=== PATIENT | female | born 1970 | race Caucasian/White ===

== ENCOUNTER 2016-10-14 18:55 | Observation (INO) ==
[2016-10-14] MEDS ORDERED: 0.9 % Sodium Chloride 500 ML IVC ONE (19:42)
[2016-10-14 19:51] LABS: Basophils % 0.3 %; Eosinophils # 0.2 K/mcL (0.0-0.6); Hematocrit 38.4 % (35.3-44.9); Hemoglobin 12.8 g/dL (11.5-15.4); Immature Granulocytes % 0.3 % (0-4); Lymphocytes # 3.2 K/mcL (0.6-4.6); Lymphocytes % 21.8 %; Mean Corpuscular HGB Conc 33.3 g/dL (31.6-35.5); Mean Corpuscular Hemoglobin 31.5 pg (28.0-33.3); Mean Corpuscular Volume 94.6 fL (83.0-100.0); Mean Platelet Volume 10.3 fL (9.4-12.4); Monocytes # 1.1 K/mcL (0.0-1.3); Monocytes % 7.2 %; Neutrophils # 10.2 K/mcL (1.6-8.9); Platelet Count 268 K/mcL (140-400); Red Blood Count 4.06 M/mcL (3.82-4.97); Red Cell Distribution Width 12.9 % (11.5-14.5); Segmented Neutrophils % 69.4 %
[2016-10-14 19:58] LABS: BUN/Creatinine Ratio 13 (6-26); Blood Urea Nitrogen 12 mg/dL (7-20); Calcium 9.5 mg/dL (8.6-10.8); Carbon Dioxide 23 mEq/L (19-29); Chloride 105 mEq/L (98-109); Glucose 90 mg/dL (70-99); Osmolality,Calculated 281 (280-300); Potassium 3.8 mEq/L (3.5-4.5); Sodium 136 mEq/L (136-145); eGFR For African Americans > 60 (> 60); eGFR For Non-African Americans > 60 (> 60)
[2016-10-14 19:59] LABS: Bilirubin,Urine Small (Negative); Blood,Urine Negative (Negative); Color,Urine Dark Yellow (Yellow); Glucose,Urine (UA) Normal (Normal); Ketones,Urine Trace mg/dL (Negative); Leukocyte Esterase,Urine Negative (Negative); Nitrite,Urine Negative (Negative); PH,Urine 5.5 pH Units (5.0-8.0); Protein,Urine 30 mg/dL (Neg-Trace); Urobilinogen,Urine Normal (Normal)
[2016-10-14 20:00] LABS: Bacteria,Urine Moderate per hpf (None-Few); Hyaline Casts,Urine Moderate per lpf (None-Few); Squamous Epithelial Cell,Urine Many per lpf (None-Few)
[2016-10-14 20:02] LABS: Clarity,Urine Slightly Hazy (Clear)
[2016-10-14 20:20] LABS: Mucus,Urine Many (Few); RBC,Urine 0-3 per hpf (0-3)
--- NOTE | 2016-10-14 21:17 | Emergency Department Note ---
Disposition Clinical Impression: Chest pain Qualifiers: Chest pain type: unspecified Qualified Code(s): R07.9 - Chest pain, unspecified Disposition: Admitted As Inpatient Condition: Good Referrals: NONE,PCP [Primary Care Provider] - Forms: ED Satisfaction Letter Time of Disposition: 23:35 Chest Pain HPI - General Chief Complaint: ED Chest Pain Stated Complaint: chest tightness, UTI Time Seen by Provider: 10/14/16 19:19 Source: patient Mode of arrival: ambulatory Limitations: no limitations Vital Signs Reviewed: Yes Nursing Notes Reviewed: Yes - History of Present Illness HPI Narrative: Patient presents to the ED with the chief complaint of chest pain, shortness of breath. Patient reports that she woke up this morning with a central to left-sided chest , sharpness. States it hurts when she takes a deep breath and also when she pushes on it. Associated shortness of breath. States that she knows she has a 70% blockage "behind her heart" from a heart catheter about 3 years ago. States that this is the exact same pain she was having then. No nausea, vomiting, diaphoresis or abdominal pain. No dysuria or hematuria, but does state her urine has been dark and she has had some right-sided low back pain. No history of kidney stones. No history of DVT, malignancy, recent travel, surgery or oral contraceptive use. Severity scale (1-10): 7 - Related Data Home Medications Medication Instructions Recorded Confirmed Atorvastatin [Lipitor] 40 mg PO HS 10/03/15 10/03/15 BuPROPion SR (12 HR) [Wellbutrin 150 mg PO BID 10/03/15 10/03/15 SR] Ergocalciferol (VITAMIN D2) 2,000 unit PO HS 10/03/15 10/03/15 [Vitamin D2] Ferrous Sulfate 325 mg PO BID 10/03/15 10/03/15 Levothyroxine [Synthroid] 150 mcg PO HS 10/03/15 10/03/15 Megestrol Acetate [Megace] 40 mg PO HS 10/03/15 10/03/15 Metoprolol [Lopressor] 25 mg PO HS 10/03/15 10/03/15 Omeprazole [PriLOSEC] 20 mg PO HS 10/03/15 10/03/15 clonazePAM [Klonopin] 1 mg PO BID 10/03/15 10/03/15 Previous Rx's Medication Instructions Recorded Ibuprofen [Motrin] 600 mg PO Q6HR PRN #40 tab 10/04/15 OxyCODONE/APAP 5/325 [Percocet 1 each PO Q4HR PRN #30 tablet 10/04/15 5/325 MG] HYDROcodone/Acet 5/325 mg [[place] 1 tab PO Q6H PRN #6 tab 08/14/16 5-325 mg] Allergies Allergy/AdvReac Type Severity Reaction Status Date / Time No Known Drug Allergies Allergy See Verified 10/03/15 06:36 Comments All systems ED: reviewed and negative except as stated. Constitutional: Denies: fever Cardiovascular: Reports: chest pain Respiratory: Reports: dyspnea Gastrointestinal: Denies: vomiting Musculoskeletal: Reports: back pain Neurological: Denies: headache Chest Pain PMH - Past Medical History Medical history: Reports: GERD, hyperlipidemia, hypertension, migraine, thyroid disease Surgical history: Reports: cholecystectomy, other Psychiatric history: Reports: anxiety, depression [employer] history: Reports: bilateral tubal ligation - Social History Smoking Status: Current every day smoker Alcohol use: Reports: none Drug use: Reports: none Physical Exam - General Limitations: no limitations General appearance: alert, in no apparent distress - Head Head exam: atraumatic, normocephalic, normal inspection - ENT ENT exam: normal exam, normal oropharynx, mucous membranes moist - Neck Neck exam: Present: normal inspection, full ROM, trachea midline - Chest Chest inspection: Present: normal inspection, symmetric chest wall rise - Respiratory Respiratory exam: Present: normal lung sounds bilaterally - Cardiovascular Cardiovascular exam: Present: normal rhythm, tachycardia, normal heart sounds - Abdominal Exam Abdominal exam: Present: soft, Non-Tender. Absent: tenderness, distention, guarding, rebound, rigidity - Extremities Exam Extremities exam: Present: normal inspection, full ROM. Absent: tenderness, pedal edema - Neurological Exam Neurological exam: Present: alert, oriented X3 - Psychiatric Psychiatric exam: Present: normal affect, normal mood - Skin Skin exam: Present: warm, dry, intact, normal color Course Vital Signs Temperature 97.8 F 10/14/16 19:07 Pulse Rate 102 10/14/16 19:07 Respiratory Rate 18 10/14/16 19:07 Blood Pressure 146/71 10/14/16 19:07 O2 Sat by Pulse Oximetry 97 10/14/16 19:07 Temperature 97.8 F 10/14/16 19:07 Pulse Rate 75 10/14/16 22:35 Respiratory Rate 18 10/14/16 22:35 Blood Pressure 143/71 10/14/16 22:35 O2 Sat by Pulse Oximetry 100 10/14/16 22:35 Oxygen Delivery Oxygen Delivery Room Air Chest Pain - Medical Records Medical records reviewed: Yes I reviewed the patient's medical records. - Lab Data Lab results reviewed: Yes I reviewed the patient's lab results. Result diagrams: 10/14/16 19:39 10/14/16 19:39 Lab Results 10/14/16 10/14/16 10/14/16 Range/Units 19:30 19:39 19:39 WBC 14.7 H (4.3-11.1) K/mcL RBC 4.06 (3.82-4.97) M/mcL Hgb 12.8 (11.5-15.4) g/dL Hct 38.4 (35.3-44.9) % MCV 94.6 (83.0-100.0) fL MCH 31.5 (28.0-33.3) pg MCHC 33.3 (31.6-35.5) g/dL RDW 12.9 (11.5-14.5) % Plt Count 268 (140-400) K/mcL MPV 10.3 (9.4-12.4) fL Immature Gran % 0.3 (0-4) % Seg Neutrophils % 69.4 % Lymphocytes % 21.8 % Monocytes % 7.2 % Eosinophils % 1.0 % Basophils % 0.3 % Neutrophils # 10.2 H (1.6-8.9) K/mcL Lymphocytes # 3.2 (0.6-4.6) K/mcL Monocytes # 1.1 (0.0-1.3) K/mcL Eosinophils # 0.2 (0.0-0.6) K/mcL Basophils # 0.0 (0.0-0.2) K/mcL D-Dimer (0-500) ng/mLFEU Sodium 136 (136-145) mEq/L Potassium 3.8 (3.5-4.5) mEq/L Chloride 105 (98-109) mEq/L Carbon Dioxide 23 (19-29) mEq/L BUN 12 (7-20) mg/dL Creatinine 0.95 (0.57-1.11) mg/dL Est GFR ( Amer) > 60 (> 60) Est GFR (Non-Af Amer) > 60 (> 60) BUN/Creatinine Ratio 13 (6-26) Glucose 90 (70-99) mg/dL Calculated Osmolality 281 (280-300) Calcium 9.5 (8.6-10.8) mg/dL Troponin I (0-0.03) ng/mL Urine Color Dark Yellow (Yellow) Urine Clarity Slightly Hazy (Clear) Urine pH 5.5 (5.0-8.0) pH Units Ur Specific [place] 1.030 H (1.010-1.025) Urine Protein 30 H (Neg-Trace) mg/dL Urine Glucose (UA) Normal (Normal) mg/dL Urine Ketones Trace H (Negative) mg/dL Urine Blood Negative (Negative) Urine Nitrite Negative (Negative) Urine Bilirubin Small H (Negative) Urine Urobilinogen Normal (Normal) mg/dL Ur Leukocyte Esterase Negative (Negative) Urine Microscopic RBC 0-3 (0-3) per hpf Urine Microscopic WBC 5-15 H (0-3) per hpf Ur Squamous Epith Cells Many H (None-Few) per lpf Urine Bacteria Moderate H (None-Few) per hpf Hyaline Casts Moderate H (None-Few) per lpf Urine Mucus Many H (Few) Ur Culture Indicated? YES A (NO) 10/14/16 10/14/16 Range/Units 19:39 19:39 WBC (4.3-11.1) K/mcL RBC (3.82-4.97) M/mcL Hgb (11.5-15.4) g/dL Hct (35.3-44.9) % MCV (83.0-100.0) fL MCH (28.0-33.3) pg MCHC (31.6-35.5) g/dL RDW (11.5-14.5) % Plt Count (140-400) K/mcL MPV (9.4-12.4) fL Immature Gran % (0-4) % Seg Neutrophils % % Lymphocytes % % Monocytes % % Eosinophils % % Basophils % % Neutrophils # (1.6-8.9) K/mcL Lymphocytes # (0.6-4.6) K/mcL Monocytes # (0.0-1.3) K/mcL Eosinophils # (0.0-0.6) K/mcL Basophils # (0.0-0.2) K/mcL D-Dimer 792 H (0-500) ng/mLFEU Sodium (136-145) mEq/L Potassium (3.5-4.5) mEq/L Chloride (98-109) mEq/L Carbon Dioxide (19-29) mEq/L BUN (7-20) mg/dL Creatinine (0.57-1.11) mg/dL Est GFR ( Amer) (> 60) Est GFR (Non-Af Amer) (> 60) BUN/Creatinine Ratio (6-26) Glucose (70-99) mg/dL Calculated Osmolality (280-300) Calcium (8.6-10.8) mg/dL Troponin I 0.01 (0-0.03) ng/mL Urine Color (Yellow) Urine Clarity (Clear) Urine pH (5.0-8.0) pH Units Ur Specific [place] (1.010-1.025) Urine Protein (Neg-Trace) mg/dL Urine Glucose (UA) (Normal) mg/dL Urine Ketones (Negative) mg/dL Urine Blood (Negative) Urine Nitrite (Negative) Urine Bilirubin (Negative) Urine Urobilinogen (Normal) mg/dL Ur Leukocyte Esterase (Negative) Urine Microscopic RBC (0-3) per hpf Urine Microscopic WBC (0-3) per hpf Ur Squamous Epith Cells (None-Few) per lpf Urine Bacteria (None-Few) per hpf Hyaline Casts (None-Few) per lpf Urine Mucus (Few) Ur Culture Indicated? (NO) - Radiology Data Radiology results reviewed: Yes I reviewed the patient's radiology results. - EKG Data EKG attestation: Yes I reviewed and interpreted this EKG. EKG results narrative: Sinus rhythm, rate 80, MS interval 136, QRS 92, QTc 412, left axis deviation, no acute ischemic changes Heart Score - Score History: Moderately Suspicious EKG: Non Specific repolarisation Disturbance Age: 45-65 Risk Factors: Equal/Greater than 3 risk factor or history of atherosclerotic disease Troponin: Less than normal limit HEART Score Total: 5 S.B.A.R. - S.B.A.R. Situation: Demographics, MOA Background: Presenting Complaint, Relevant PMH, Meds, & Allergies Assessment: Vital Signs, Course and respsone to treatment, Exam Concerns, Patient/Family Expectation, Pertinant Lab Results, Outstanding Labs Recommendation: Barrier(s) to disposition, Recommendation based on pending studies, treatments, or consults [email or web address] Report Given to: Dr. Waqar Reynoso Repor Time: 23:35 Attestation Statement - Attestation Attestation: I, Willie Gallegos MD, personally evaluated this patient and discussed their management with the resident physician. I reviewed the resident's note and agree with the documented findings, medical decision making, and plan of care. 46-year-old female presents to the emergency department with a complaint of left sided chest pain which awoke her from sleep about 10 AM today. The pain is been present all day and is been waxing and waning. No radiation of the pain. She describes the pain as a pressure and squeezing in the left chest. No radiation. No nausea or vomiting. No diaphoresis. No cough or fever. Patient reports this feels similar to an episode of chest pain she had in the past when she had a cardiac catheter which showed a 70% blockage. She did not receive any stents or intervention at that time. She is not sure when she had the heart catheter but it was more than 3 years ago. On examination patient is a well-developed well-nourished well-appearing female in no acute distress. She is alert and oriented 3. There is no cyanosis or diaphoresis. Breath sounds are clear and equal bilaterally. Heart regular rate and rhythm. Abdomen soft and nontender with normal bowel sounds. No pedal edema. Labs reviewed. Troponin normal. Elevated d-dimer noted. Chest x-ray negative. No acute changes on EKG. CTA of the chest showed no evidence of pulmonary embolism or other acute pulmonary abnormality. The hospitalist, Dr. Zavaleta, was consulted and accepted admission of the patient.
[2016-10-14] MEDS ORDERED: Aspirin 325 MG TABLET PO ONE (23:35)
[2016-10-15] MEDS ORDERED: Naloxone 0.4 MG/ML INJ IVP PRN (02:42)
[2016-10-15] MEDS ORDERED: MOM Conc 10 ML UD.LIQ PO PRN (02:42)
[2016-10-15] MEDS ORDERED: *HR* Morphine 2 MG/ML SYRINGE IVP PRN (02:42)
[2016-10-15] MEDS ORDERED: Ondansetron 4 MG/2 ML VIAL IVP PRN (02:42)
[2016-10-15] MEDS ORDERED: Acetaminophen 325 MG TABLET PO PRN (02:42)
[2016-10-15] MEDS ORDERED: *HR* HYDROcodone/Acet 5/325 mg TABLET PO PRN (02:45)
[2016-10-15] MEDS ORDERED: 0.9 % Sodium Chloride 1,000 ML IVC SCH (02:45)
--- NOTE | 2016-10-15 02:52 | Internal Med History&Physical ---
Date of Encounter: 10/15/16 Time of Encounter: 02:49 Assessment and Plan (1) Chest pain Current visit: Yes Status: Acute Atypical chest pain which aggravates with deep inspiration. Troponin ordered stress test will be done in the morning. Patient is on beta rosario and aspirin but very less likely cardiac correction. Qualifiers: Chest pain type: chest pain on breathing Qualified Code(s): R07.1 - Chest pain on breathing; R07.81 - Pleurodynia (2) Pneumonia Current visit: Yes Status: Acute Chest x-ray reviewed and some right lower lobe early infiltrates noted. Considering white count is elevated as well as d-dimer I will go ahead and did start patient on IV Levaquin. Qualifiers: Pneumonia type: due to unspecified organism Laterality: right Lung location: lower lobe of lung Qualified Code(s): J18.1 - Lobar pneumonia, unspecified organism (3) COPD (chronic obstructive pulmonary disease) Current visit: Yes Status: Acute History of COPD start DuoNeb's Qualifiers: COPD type: emphysema Emphysema type: unspecified Qualified Code(s): J43.9 - Emphysema, unspecified (4) Dyslipidemia Current visit: Yes Status: Acute Internal Medicine - H&P: HPI Chief complaint: Chest pain Admitted From: Home Plans for Post Hospital Care: Home History of present illness: Ms. Anguiano is a 46 year old female . Patient reports that she woke up this morning with a suprasternal chest pain radiating to to left-sided of chest. Chest pain is pleuritic in nature and sharp. She States it hurts when she takes a deep breath and also when she pushes on it. It is Associated shortness of breath. She States that she knows she has a 70% blockage "behind her heart" from a heart catheter about 3 years ago. States that this is the exact same pain she was having then. No nausea, vomiting, diaphoresis or abdominal pain. No dysuria or hematuria, but does state her urine has been dark and she has had some right-sided low back pain. No history of kidney stones. No history of DVT , malignancy, recent travel, surgery or oral contraceptive use. Past Med Surg Social Fam HX - Past Medical History Medical history: GERD, hyperlipidemia, hypertension, migraine, thyroid disease Psychiatric history: anxiety, depression - Past Surgical History Surgical History: cholecystectomy, other - Social History Smoking Status: Current every day smoker Packs per day: 1 Smokeless Tobacco Status: No Alcohol use: none Drug use: none - Family History Father Living Status: Still Living Hx Family Cardiac Disorders: Yes (RI, bypass, Pacer) Hx Family Respiratory Disorders: Yes (COPD) Hx Family Cancer: No Hx Family GI Disorders: No Hx Family Genitourinary Disorders: No Hx Family Endocrine Disorder: Yes (Thyroid disease) Hx Family Musculoskeletal Disorders: No Hx Family Neuromuscular Disorders: No Hx Family Neurologic Disorders: No Hx Family HEENT Disorders: No Hx Family Autoimmune Disorders: No Hx Family Reproductive Disorders: No Hx Family Psychosocial Disorders: No Hx Family Medical Disorders: No Mother Hx Family Cardiac Disorders: Yes (Heart stents, [place]) Hx Family Respiratory Disorders: No Hx Family Cancer: No Hx Family GI Disorders: No Hx Family Genitourinary Disorders: No Hx Family Endocrine Disorder: Yes (Thyroid disease) Hx Family Musculoskeletal Disorders: No Hx Family Neuromuscular Disorders: No Hx Family Neurologic Disorders: No Hx Family HEENT Disorders: No Hx Family Autoimmune Disorders: No Hx Family Reproductive Disorders: No Hx Family Psychosocial Disorders: No Hx Family Medical Disorders: No Internal Medicine - H&P: Meds Atorvastatin [Lipitor] 40 mg PO HS 10/03/15 [History] BuPROPion SR (12 HR) [Wellbutrin SR] 150 mg PO BID 10/03/15 [History] Ergocalciferol (VITAMIN D2) [Vitamin D2] 2,000 unit PO HS 10/03/15 [History] Ferrous Sulfate 325 mg PO BID 10/03/15 [History] Levothyroxine [Synthroid] 150 mcg PO HS 10/03/15 [History] Megestrol Acetate [Megace] 40 mg PO HS 10/03/15 [History] Metoprolol [Lopressor] 25 mg PO HS 10/03/15 [History] Omeprazole [PriLOSEC] 20 mg PO HS 10/03/15 [History] clonazePAM [Klonopin] 1 mg PO BID 10/03/15 [History] Ibuprofen [Motrin] 600 mg PO Q6HR PRN #40 tab 10/04/15 [Rx] OxyCODONE/APAP 5/325 [Percocet 5/325 MG] 1 each PO Q4HR PRN #30 tablet 10/04/15 [Rx] HYDROcodone/Acet 5/325 mg [[place] 5-325 mg] 1 tab PO Q6H PRN #6 tab 08/14/16 [Rx] 3 Allergy/AdvReac Type Severity Reaction Status Date / Time No Known Drug Allergies Allergy See Verified 10/03/15 06:36 Comments All Systems PM: A 10-system review of systems was performed and is negative for pertinent findings except as documented above in the HPI. - Constitutional Constitutional: no chills, no fever(s), no night sweats - EENT Eyes: no change in vision, no discharge, no pain, no photophobia Ears: no ear discharge, no ear pain, no tinnitus Nose, mouth and throat: no dysphagia, no nasal discharge, no neck pain, no sore throat - Cardiovascular Cardiovascular ROS IM: no chest pain, no diaphoresis, no dyspnea, no lightheadedness, no palpitations, no syncope - Respiratory Respiratory: no cough, no dyspnea, no wheezing, no excessive phlegm production - Gastrointestinal Gastrointestinal: no abdominal pain, no diarrhea, no hematemesis, no hematochezia, no melena, no nausea, no vomiting - Genitourinary Genitourinary: no change in urinary stream, no dysuria, no flank pain, no hematuria - Musculoskeletal Musculoskeletal ROS IM: no numbness, no tingling - Integumentary Integumentary IM: no rash, no unusual bruising - Neurological Neurological ROS: no confusion, no convulsions, no focal weakness, no numbness, no tingling, no tremor(s) - Hematologic/Lymphatic Hematologic/Lymphatic: no easy bruising - Constitutional Vitals: Temp Pulse Resp BP Pulse Ox 98.3 F 73 14 145/85 97 10/15/16 00:00 10/15/16 00:00 10/15/16 00:00 10/15/16 00:00 10/15/16 00:00 General appearance: Present: A&O X 3, pleasant, no acute distress, answers questions appropriately - Head Head exam: Present: atraumatic, normocephalic - Eye Eye exam: Present: PERRL, conjuntiva pink, sclera anicteric Pupils: Present: PERRL - Neck Neck exam general surgery: Present: supple, trachea midline. Absent: lymphadenopathy - Respiratory Respiratory exam: Present: CTAB. Absent: accessory muscle use, rales, rhonchi, wheezes - Cardiovascular Cardiovascular exam: Present: RRR, +S1, +S2. Absent: diastolic murmur, gallop, rubs, systolic murmur - GI/Abdominal GI/Abdominal exam: Present: normal bowel sounds, soft, no peritoneal signs. Absent: distended, tenderness - Extremities Exam Extremities exam: Present: warm, radial pulses palpable and symmetrical. Absent : calf tenderness, cyanotic, pedal edema - Neurological Exam Neurological exam: Present: CN II-XII intact, oriented X3, no focal deficits. Absent: pronater drift, facial droop, speech deficit - Skin Skin exam: Present: dry, intact Internal Med - H&P Results - Labs CBC & Chem 7: 10/14/16 19:39 10/14/16 19:39
[2016-10-15] MEDS ORDERED: Levofloxacin 500 MG/100 ML 500 MG/100 ML BAG IVPB SCH (03:00)
[2016-10-15] MEDS: Famotidine 20 MG TABLET PO SCH ×2 (04:01→09:58)
[2016-10-15 04:35] LABS: Basophils % 0.4 %; Eosinophils # 0.2 K/mcL (0.0-0.6); Eosinophils % 1.9 %; Hematocrit 36.8 % (35.3-44.9); Hemoglobin 12.5 g/dL (11.5-15.4); Immature Granulocytes % 0.3 % (0-4); Lymphocytes # 3.6 K/mcL (0.6-4.6); Lymphocytes % 31.6 %; Mean Corpuscular Hemoglobin 32.6 pg (28.0-33.3); Mean Corpuscular Volume 96.1 fL (83.0-100.0); Mean Platelet Volume 10.6 fL (9.4-12.4); Monocytes # 0.8 K/mcL (0.0-1.3); Monocytes % 7.1 %; Neutrophils # 6.7 K/mcL (1.6-8.9); Platelet Count 235 K/mcL (140-400); Red Blood Count 3.83 M/mcL (3.82-4.97); Red Cell Distribution Width 12.9 % (11.5-14.5); Segmented Neutrophils % 58.7 %
[2016-10-15 04:50] LABS: BUN/Creatinine Ratio 18 (6-26); Blood Urea Nitrogen 14 mg/dL (7-20); Calcium 9.1 mg/dL (8.6-10.8); Carbon Dioxide 21 mEq/L (19-29); Chloride 108 mEq/L (98-109); Glucose 89 mg/dL (70-99); Osmolality,Calculated 284 (280-300); Potassium 3.9 mEq/L (3.5-4.5); Sodium 137 mEq/L (136-145); eGFR For African Americans > 60 (> 60); eGFR For Non-African Americans > 60 (> 60)
[2016-10-15] MEDS: Ipratropium/Albuterol Neb 3 ML IH SCH ×2 (05:08→10:44)
[2016-10-15] MEDS ORDERED: *HR* Enoxaparin 40 MG/0.4 ML SYRINGE SQ SCH (06:00)
[2016-10-15] MEDS ORDERED: Regadenoson 0.4 MG/5 ML SYRINGE IVP ONE (08:00)
[2016-10-15] MEDS ORDERED: Aspirin 325 MG TABLET PO SCH (09:00)
[2016-10-15] MEDS ORDERED: BuPROPion SR (12 HR) 150 MG TABLET PO SCH (09:00)
[2016-10-15] MEDS ORDERED: clonazePAM 1 MG TABLET PO SCH (09:00)
--- NOTE | 2016-10-15 09:48 | Nuclear Medicine Stress Report ---
Regadenoson Nuclear Stress Name: Peace Anguiano Date of Study: 10/15/2016 Date: 1970 Ht: 68.0 in Medical Record#: [id number] Age: 46 Wt: 191.0 lb Gender: Female Order #: [id number] Location: [facility] Room: [facility] Supervising Provider: Katy Zacarias CNP Reading Physician: Mauro Sena DO, FACC, [facility] Ordering Physician: Krys Haney CNP Primary Care Physician: None Stress Technologist: Tommy Jones, CATALOG SPECIALIST, CPFT Senior Java Programmer Analyst: Hilton Graff Indications: Chest Pain Impression: Pharmacologic stress ECG is negative for ischemia at level of heart rate achieved. Gated EF = 71%. Small sized, mild intensity, fixed apical septal defect. Perfusion is worse on rest imaging. These findings are consistent with artifact. Perfusion imaging was negative for ischemia or infarct. History: Hypertension Hypercholesteremia History of Smoking Stress Test Summary: Stress Test Type: Pharmacologic Regadenoson 0.4mg/5ml given IV Baseline Information: Initial Heart Rate: 69 Blood Pressure: 112/68 Stress Information: Stress Time: 4 min 00 sec Test Terminated Due to (primary): As per protocol Maximum Blood Pressure: 104/62 Maximum Heart Rate: 107 Percent Maximum Heart Rate Achieved: 61 Double Product: [id number] METS Reached: 1 Symptoms: Shortness of breath Nuclear Summary: SPECT myocardial perfusion imaging using Tc99m Sestamibi given intravenously was performed at rest and following cardiac stress testing. The resting images were obtained following initial dose of 11.6 mCi. Following stress an additional dose of 31.5 mCi was given at peak exercise or 30 seconds post regadenoson infusion. Medication Given: Time Medication Dose Units Route Findings: Stress Note * Resting ECG demonstrated normal sinus rhythm. * No baseline arrhythmias were noted. * Pharmacologic stress ECG is negative for ischemia at level of heart rate achieved. * No arrhythmias were noted during stress. * Patient had no chest pain during stress. * Normal hemodynamic responses to pharmacologic stress. Study Quality * Study quality is average. Increased GI uptake partially obscures inferior segments. Gated EF % * Gated EF = 71%. Left Ventricle * The left ventricle is not dilated. LVEDV = 97 mL. * Normal wall motion. Apical Perfusion Rest * The apical septal segment shows a moderate reduction in perfusion. Apical Perfusion Stress * The apical septal segment shows a mild reduction in perfusion. TID * No evidence of transient ischemic dilatation. TID ratio = 0.90. Lung Uptake * There is no evidence of increase lung uptake. Updated by Mauro Sena DO, FACPatti, WAY[place], [place] on 10/15/2016 9:41:59 AM electronically signed on 10/15/2016 9:43:12 AM with status of Final
[2016-10-15 11:25] VITALS: BP 107/66
--- NOTE | 2016-10-15 12:51 | Discharge Summary ---
Date of Encounter: 10/15/16 Time of Encounter: 12:15 - Discharge Diagnosis (1) Chest pain Priority: Primary Status: Resolved Comments: Patient denied chest pain or shortness of breath above her normal day of discharge. Chest x-ray negative. CTA negative. Stress test negative for ischemia or infarct revealed an ejection fraction of 71%. ACS ruled out. Qualifiers: Chest pain type: chest pain on breathing Qualified Code(s): R07.1 - Chest pain on breathing; R07.81 - Pleurodynia (2) Pneumonia Priority: Primary Status: Ruled-out Comments: In review of her chest x-ray and her CTA, there does not appear to be any radiological evidence of pneumonia. Clinically, patient is a one pack per day smoker with diffuse expiratory wheezing throughout. Given that she also has an abnormal urinalysis, will treat for 5 day course of levofloxacin. Qualifiers: Pneumonia type: due to unspecified organism Laterality: right Lung location: lower lobe of lung Qualified Code(s): J18.1 - Lobar pneumonia, unspecified organism (3) COPD (chronic obstructive pulmonary disease) Priority: Secondary Status: Chronic Qualifiers: COPD type: emphysema Emphysema type: unspecified Qualified Code(s): J43.9 - Emphysema, unspecified (4) Hypertension Priority: Secondary Status: Chronic Comments: Controlled, followed by outpatient Qualifiers: Hypertension type: essential hypertension Qualified Code(s): I10 - Essential (primary) hypertension (5) Dyslipidemia Priority: Secondary Status: Chronic Comments: No recent lipid panel, recommend continue low-cholesterol diet and statin and follow up outpatient (6) Tobacco abuse Priority: Secondary Status: Chronic Comments: One pack per day smoker, declined counseling - Discharge Medications Prescriptions: Levofloxacin [Levaquin] 750 mg PO DAILY #4 tablet Home Medications: Atorvastatin [Lipitor] 40 mg PO HS 10/03/15 [History] BuPROPion SR (12 HR) [Wellbutrin SR] 150 mg PO BID 10/03/15 [History] Ergocalciferol (VITAMIN D2) [Vitamin D2] 2,000 unit PO HS 10/03/15 [History] Ferrous Sulfate 325 mg PO BID 10/03/15 [History] Levothyroxine [Synthroid] 150 mcg PO HS 10/03/15 [History] Metoprolol [Lopressor] 25 mg PO BID 10/03/15 [History] Omeprazole [PriLOSEC] 20 mg PO HS 10/03/15 [History] clonazePAM [Klonopin] 1 mg PO BID 10/03/15 [History] Ibuprofen [Motrin] 600 mg PO Q6HR PRN #40 tab 10/04/15 [Rx] HYDROcodone/Acet 5/325 mg [[place] 5-325 mg] 1 tab PO Q6H PRN tab 10/15/16 [Rx] Levofloxacin [Levaquin] 750 mg PO DAILY #4 tablet 10/15/16 [Rx] Allergies/Adverse Reactions: 3 Allergy/AdvReac Type Severity Reaction Status Date / Time No Known Drug Allergies Allergy See Verified 10/03/15 06:36 Comments Procedures/tests Complete & Pending: Procedures Performed prior 72 hours Category Date Time Status NM angelika perf SPECT multi [NM] Routine Exams 10/15/16 02:47 Taken SP pharm nuclear stress Routine Y 10/15/16 07:20 Completed Date of admission: 10/14/16 23:39 Primary care physician: PCP NONE Discharging clinician: Whitney Ye Anticipated date of discharge: 10/15/16 - Patient Status Disposition: Home, Self-Care Condition: Good Functional capacity at discharge: independent ambulation Overall status at discharge: patient is back to baseline - Discharge Instructions Follow Up With: NONE,PCP [Primary Care Provider] - Additional Instructions: Patient was recently dismissed from primary care provider due to several no call , no shows. Please set up with residency clinic for a follow-up in 1-2 weeks - Diet and Activity Activity: increase activity as tolerated Diet: low fat, low cholesterol, low salt diet Hospital course: Ms. Anguiano is a 46 year old female with past medical history of GERD, hyperlipidemia, hypertension, migraines, thyroid disease, cholecystectomy, one pack per day smoker. Patient woke up on the morning of presentation with a substernally located chest pain that radiated to the left side of her chest. Pain was pleuritic in nature and sharp. Patient stating pain was worsened when she took a deep breath and also when she pushed on her chest. Associated symptoms include shortness of breath. Patient concerned as she was told that she had a 70% blockage behind her heart from a heart catheter 3 years ago. Patient stating this pain is in the exact same location and feels similar to that time. She denied nausea, vomiting, diaphoresis, or abdominal pain. She denied dysuria or hematuria. She does however state that her urine had been dark and she had some right-sided low back pain. Workup in the emergency department unremarkable. Chest x-ray negative. D-dimer was elevated so a CTA was performed which ruled out a PE. Patient was admitted to the hospitalist service for further evaluation and management. Troponins negative 3. Nuclear stress test negative for ischemia or infarct and revealed an ejection fraction of 71%. ACS ruled out. Patient denied chest pain on day of discharge. Of note , clinically, patient had symptoms consistent with right lower lobe pneumonia. She also had abnormal urinalysis and mild leukocytosis. With these 2 findings, she was given a 5 day course of levofloxacin for possible UTI as well as possible early pneumonia. She will be called tomorrow if antibiotic needs changed. She was able to tolerate a regular diet during this admission. She was ambulatory without limitations. She was discharged home in stable condition with close outpatient follow-up recommended. ITS Impressions Chest X-Ray 10/14/16 19:42 IMPRESSION: No evidence of acute cardiopulmonary disease. D/ / Floyd Alvarez MD / Floyd Alvarez MD Interpreting Provider: Floyd Alvarez MD Chest CTA 10/14/16 21:18 IMPRESSION: No evidence of pulmonary embolism or acute pulmonary abnormality. Mild emphysema. D/ / Madelaine Fraser MD / Madelaine Fraser MD Interpreting Provider: Madelaine Fraser MD [facility] Nuclear Stress Date of Study: 10/15/2016 Impression: Pharmacologic stress ECG is negative for ischemia at level of heart rate achieved. Gated EF = 71%. Small sized, mild intensity, fixed apical septal defect. Perfusion is worse on rest imaging. These findings are consistent with artifact. Perfusion imaging was negative for ischemia or infarct. - Time Spent with Patient Total time spent providing and/or coordinating discharge services: - Constitutional Vitals: Temp Pulse Resp BP Pulse Ox 97.5 F L 79 16 107/66 98 10/15/16 11:24 10/15/16 11:24 10/15/16 11:24 10/15/16 11:24 10/15/16 11:24 General appearance: Present: A&O X 3, pleasant, no acute distress, answers questions appropriately - Head Head exam: Present: atraumatic, normocephalic - Eye Eye exam: Present: PERRL, conjuntiva pink, sclera anicteric Pupils: Present: PERRL - Neck Neck exam general surgery: Present: supple, trachea midline. Absent: lymphadenopathy - Respiratory Respiratory exam: Present: decreased breath sounds, wheezes. Absent: accessory muscle use, rales, respiratory distress, rhonchi - Cardiovascular Cardiovascular exam: Present: RRR, +S1, +S2. Absent: diastolic murmur, gallop, rubs, systolic murmur - GI/Abdominal GI/Abdominal exam: Present: normal bowel sounds, soft, no peritoneal signs. Absent: distended, tenderness - Extremities Exam Extremities exam: Present: warm, radial pulses palpable and symmetrical. Absent : calf tenderness, cyanotic, pedal edema - Neurological Exam Neurological exam: Present: alert, CN II-XII intact, normal gait, oriented X3, no focal deficits, strengths equal and symetr throughout. Absent: pronater drift, facial droop, speech deficit - Skin Skin exam: Present: dry, intact, normal color, warm
[2016-10-15] MEDS ORDERED: Cholecalciferol (D-3) 1,000 UNIT TABLET PO SCH (21:00)
--- NOTE | 2016-10-16 14:36 | Electrocardiograph Report ---
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
== END 2016-10-15 13:45 | disposition home or self-care (01) ==
LOC: 3BNU 18:55 → EMEROO 18:55 → SUATTDRO 23:39 → 3BNU 23:48
PROVIDERS: ADMIT Internal Medicine; ATTEND Nurse Practitioner Family

== ENCOUNTER 2019-12-18 00:55 | Observation (INO) ==
[2019-12-18] MEDS ORDERED: *HR* Adenosine 6 MG/2 ML VIAL IVP ONE ×2 (01:11→02:38)
[2019-12-18 01:54] LABS: Basophils % 0.1 %; Hematocrit 42.2 % (35.3-44.9); Hemoglobin 14.2 g/dL (11.5-15.4); Immature Granulocytes % 0.5 % (0-4); Lymphocytes # 3.5 K/mcL (0.6-4.6); Lymphocytes % 20.3 %; Mean Corpuscular HGB Conc 33.6 g/dL (31.6-35.5); Mean Corpuscular Hemoglobin 34.7 pg (28.0-33.3); Mean Corpuscular Volume 103.2 fL (83.0-100.0); Mean Platelet Volume 11.3 fL (9.4-12.4); Monocytes # 0.8 K/mcL (0.0-1.3); Monocytes % 4.4 %; Neutrophils # 12.7 K/mcL (1.6-8.9); Platelet Count 367 K/mcL (140-400); Red Blood Count 4.09 M/mcL (3.82-4.97); Red Cell Distribution Width 12.2 % (11.5-14.5); Segmented Neutrophils % 74.7 %
[2019-12-18 02:06] LABS: BUN/Creatinine Ratio 22 (6-26); Blood Urea Nitrogen 19 mg/dL (6-20); Calcium 10.2 mg/dL (8.6-10.3); Carbon Dioxide 24 mEq/L (23-29); Chloride 103 mEq/L (98-107); Glucose 186 mg/dL (70-105); Osmolality,Calculated 295 (280-300); Potassium 3.7 mEq/L (3.5-5.1); Sodium 139 mEq/L (136-145); Troponin I < 0.03 ng/mL (< 0.04); eGFR For African Americans > 60 (> 60); eGFR For Non-African Americans > 60 (> 60)
[2019-12-18] MEDS ORDERED: Naloxone 0.4 MG/ML INJ IVP PRN (08:05)
[2019-12-18] MEDS ORDERED: Aspirin 325 MG TABLET PO ONE (08:22)
[2019-12-18 08:58] LABS: Troponin I < 0.03 ng/mL (< 0.04)
[2019-12-18] MEDS: clonazePAM 1 MG TABLET PO SCH ×2 (09:07→21:34)
[2019-12-18 09:28] LABS: Alanine Aminotransferase 36 Units/L (7-52); Albumin/Globulin Ratio 1.1 (1.1-2.2); Alkaline Phosphatase 53 Units/L (34-104); Aspartate Amino Transferase 34 Units/L (13-39); Bilirubin,Direct 0.1 mg/dL (0.0-0.2); Bilirubin,Indirect 0.1 mg/dL (0.0-1.0); Bilirubin,Total 0.2 mg/dL (0.3-1.0); Globulin 3.5 g/dL (2.4-3.5); Total Protein 7.5 g/dL (6.4-8.9)
[2019-12-18] MEDS: *HR* Heparin 5,000 UNIT/ML VIAL SQ SCH (18:50)
[2019-12-18] MEDS ORDERED: cloNIDine HCL 0.1 MG TABLET PO SCH (21:00)
[2019-12-18] MEDS: BuPROPion SR (12 HR) 150 MG TABLET PO SCH (21:34)
[2019-12-18] MEDS: predniSONE 20 MG TABLET PO SCH (21:35)
[2019-12-18] MEDS: Budesonide/Formoterol 160/4.5 1 PUFF INH IH SCH (21:48)
[2019-12-19 01:33] LABS: Basophils % 0.3 %; Eosinophils # 0.1 K/mcL (0.0-0.6); Eosinophils % 0.8 %; Immature Granulocytes % 0.4 % (0-4); Lymphocytes # 3.7 K/mcL (0.6-4.6); Lymphocytes % 26.3 %; Mean Corpuscular HGB Conc 33.3 g/dL (31.6-35.5); Mean Corpuscular Hemoglobin 34.7 pg (28.0-33.3); Mean Platelet Volume 11.3 fL (9.4-12.4); Neutrophils # 9.1 K/mcL (1.6-8.9); Platelet Count 277 K/mcL (140-400); Red Blood Count 3.75 M/mcL (3.82-4.97); Red Cell Distribution Width 12.4 % (11.5-14.5); Segmented Neutrophils % 65.2 %; White Blood Count 13.9 K/mcL (4.3-11.1)
[2019-12-19 01:52] LABS: BUN/Creatinine Ratio 32 (6-26); Blood Urea Nitrogen 23 mg/dL (6-20); Calcium 8.7 mg/dL (8.6-10.3); Carbon Dioxide 23 mEq/L (23-29); Chloride 108 mEq/L (98-107); Glucose 130 mg/dL (70-105); Osmolality,Calculated 293 (280-300); Potassium 3.6 mEq/L (3.5-5.1); Sodium 139 mEq/L (136-145); eGFR For African Americans > 60 (> 60); eGFR For Non-African Americans > 60 (> 60)
[2019-12-19] MEDS: *HR* Heparin 5,000 UNIT/ML VIAL SQ SCH (05:30)
[2019-12-19] MEDS ORDERED: Regadenoson 0.4 MG/5 ML SYRINGE IVP ONE (06:42)
[2019-12-19] MEDS ORDERED: Perflutren Lipid Microsphere 1.3 ML in 0.9 % Sodium Chloride 8.7 ML IVP PRN (08:21)
[2019-12-19] MEDS ORDERED: Cholecalciferol (D-3) 1,000 UNIT (25MCG) TABLET PO SCH ×2 (09:00)
[2019-12-19] MEDS ORDERED: FLUoxetine 20 MG CAPSULE PO SCH (09:00)
[2019-12-19 10:25] VITALS: BP 135/75
[2019-12-19] MEDS: clonazePAM 1 MG TABLET PO SCH (10:42)
[2019-12-19] MEDS: BuPROPion SR (12 HR) 150 MG TABLET PO SCH (10:43)
[2019-12-19] MEDS: predniSONE 20 MG TABLET PO SCH (10:43)
[2019-12-19] MEDS: Budesonide/Formoterol 160/4.5 1 PUFF INH IH SCH (11:57)
[2019-12-19] MEDS ORDERED: Metoprolol XL (24 HR) Succ 50 MG TAB.ER.24H PO ONE (14:47)
== END 2019-12-19 16:30 | disposition home or self-care (01) ==
LOC: 3BNU 00:55 → EMEROOARM 00:55 → 3BNU 08:48
PROVIDERS: ADMIT Family Medicine; ATTEND Family Medicine